=== PATIENT | female | born 1995 | race American Indian/Alaskan Native ===

== ENCOUNTER 2020-07-26 21:10 | Emergency (ER) | payer SELFPAY ==
[2020-07-26 21:45] VITALS: BP 143/87
[2020-07-27 00:52] LABS: Bilirubin,Urine NEG (Negative); Blood,Urine NEG (Negative); Color,Urine Yellow (Yellow); Mucus,Urine FEW /HPF; Protein,Urine <15 mg/dL mg/dL (Negative)
[2020-07-27 00:54] LABS: HCG Qualitative,Urine Negative (Negative)
[2020-07-27] MEDS ORDERED: LIDOCAINE-MPF (1%) 10 MG/1 ML VIAL 5 ML INFILTRATI ONE (01:30)
--- NOTE | 2020-07-27 02:05 | Emergency Department Report ---
ED Female HPI - General Chief complaint: Urogenital-Female Stated complaint: STD CHECK Source: patient Mode of arrival: Ambulatory Limitations: No Limitations - History of Present Illness Initial comments: Patient is a A0 25-year-old -[place] female with no past medical history presents to the ED with a complaint of acute onset urinary frequency and urgency and vaginal discharge for the last 3 days. Patient states that her ex- boyfriend with whom she had an unprotected sexual intercourse about a month ago contacted her and told her to come to the ED for STD treatment since he was diagnosed with an STD which he did not mention a while ago. Patient states that her ex-boyfriend told her that he had multiple sexual partners and that he was unsure as to where he got the infection from. Patient denies fever, chills, dysuria, vaginal bleeding, abdominal pain, nausea and vomiting, back pain, chest pain, shortness of breath or diarrhea. MD Complaint: vaginal discharge, possible STD -: Sudden, week(s) (1) Location: other (Vaginal) Radiation: non-radiating Severity: mild Severity scale (0 -10): 1 Quality: dull Consistency: intermittent Improves with: none Worsens with: none Are you Now?: No Associated Symptoms: denies other symptoms, vaginal discharge. denies: vaginal bleeding, abdominal pain, nausea/vomiting, fever/chills, headaches, loss of appetite, dysuria, hematuria, rash, seizure, shortness of breath, syncope, weakness - Related Data Sexually active: Yes : 1 Para: 1 A: 0 Previous Rx's Medication Instructions Recorded Last Taken Type Ibuprofen [Motrin 800 MG tab] 800 mg PO Q8HR PRN #12 tablet 11/25/19 Unknown Rx Doxycycline Hyclate 100 mg PO Q12H #20 tablet. 07/27/20 Unknown Rx Ondansetron [Zofran Odt] 4 mg PO Q6HR PRN #15 tab.catarinadis 07/27/20 Unknown Rx metroNIDAZOLE [Flagyl] 500 mg PO Q12HR #14 tab 07/27/20 Unknown Rx Allergies Allergy/AdvReac Type Severity Reaction Status Date / Time No Known Allergies Allergy Verified 11/25/19 02:33 ED Review of Systems ROS: Stated complaint: STD CHECK Other details as noted in HPI Constitutional: denies: chills, fever Eyes: denies: eye pain, eye discharge, vision change ENT: denies: ear pain, throat pain Respiratory: denies: cough, shortness of breath, wheezing Cardiovascular: denies: chest pain, palpitations Endocrine: no symptoms reported Gastrointestinal: denies: abdominal pain, nausea, diarrhea Genitourinary: urgency, discharge. denies: dysuria Musculoskeletal: denies: back pain, joint swelling, arthralgia Skin: denies: rash, lesions Neurological: denies: headache, weakness, paresthesias Psychiatric: denies: anxiety, depression Hematological/Lymphatic: denies: easy bleeding, easy bruising ED Past Medical Hx - Past Medical History Previous Medical History?: No - Surgical History Past Surgical History?: No - Social History Smoking Status: Current Every Day Smoker Substance Use Type: Alcohol - Medications Home Medications: Home Medications Medication Instructions Recorded Confirmed Last Taken Type Ibuprofen [Motrin 800 MG tab] 800 mg PO Q8HR PRN #12 tablet 11/25/19 Unknown Rx Doxycycline Hyclate 100 mg PO Q12H #20 tablet. 07/27/20 Unknown Rx Ondansetron [Zofran Odt] 4 mg PO Q6HR PRN #15 tab.rapdis 07/27/20 Unknown Rx metroNIDAZOLE [Flagyl] 500 mg PO Q12HR #14 tab 07/27/20 Unknown Rx ED Physical Exam - General Limitations: No Limitations General appearance: alert, in no apparent distress - Head Head exam: Present: atraumatic, normocephalic, normal inspection - Eye Eye exam: Present: normal appearance, PERRL, EOMI Pupils: Present: normal accommodation - ENT ENT exam: Present: normal exam, normal orophraynx, mucous membranes moist, TM's normal bilaterally, normal external ear exam - Neck Neck exam: Present: normal inspection, full ROM - Respiratory Respiratory exam: Present: normal lung sounds bilaterally. Absent: respiratory distress, wheezes, rales, stridor, chest wall tenderness, accessory muscle use, decreased breath sounds - Cardiovascular Cardiovascular Exam: Present: normal rhythm, tachycardia, normal heart sounds. Absent: systolic murmur, diastolic murmur, rubs, gallop - GI/Abdominal GI/Abdominal exam: Present: soft, normal bowel sounds. Absent: tenderness, guarding, hyperactive bowel sounds, hypoactive bowel sounds - Bi-manual exam: Present: other (Pelvic exam deferred, patient preferred self swab) - Extremities Exam Extremities exam: Present: normal inspection - Back Exam Back exam: Present: normal inspection, full ROM. Absent: tenderness, CVA tenderness (R), CVA tenderness (L), muscle spasm, paraspinal tenderness, vertebral tenderness - Neurological Exam Neurological exam: Present: alert, oriented X3, CN II-XII intact, normal gait, reflexes normal - Psychiatric Psychiatric exam: Present: normal affect, normal mood - Skin Skin exam: Present: warm, dry, intact, normal color. Absent: rash ED Course Vital Signs 07/26/20 21:43 Temperature 98.8 F Pulse Rate 104 H Respiratory 18 Rate Blood Pressure 143/87 O2 Sat by Pulse 98 Oximetry ED Medical Decision Making - Medical Decision Making This is a A0 25-year-old -[place] female with no past medical history presents to the ED with a complaint of acute onset urinary frequency and urgency and vaginal discharge for the last 3 days. Patient states that her ex- boyfriend with whom she had an unprotected sexual intercourse about a month ago contacted her and told her to come to the ED for STD treatment since he was diagnosed with an STD which he did not mention a while ago. Patient states that her ex-boyfriend told her that he had multiple sexual partners and that he was unsure as to where he got the infection from. In the ED, patient is alert and oriented x3 and is not in any distress. Urinalysis unremarkable. Wet prep was positive for Gardnerella vaginalis consistent with bacterial vaginosis. Patient was empirically treated for gonorrhea with Rocephin in the ED. Patient was discharged home with doxycycline and Flagyl and was advised to follow-up with the [facility] department for further evaluation and STD testing including HIV and syphilis. Patient was advised return to the ED immediately if symptoms get worse. - Differential Diagnosis UTI; bacterial vaginosis; trichomonas; Radha vaginitis; STD Critical care attestation.: If time is entered above; I have spent that time in minutes in the direct care of this critically ill patient, excluding procedure time. ED Disposition Clinical Impression: Bacterial vaginosis, Exposure to sexually transmitted disease (STD) Disposition: TO HOME OR SELFCARE Is pt being admited?: No Does the pt Need Aspirin: No Condition: Stable Instructions: Bacterial Vaginosis (ED), Bacterial Vaginosis, [id number], Safe Sex, Chlamydia, Female, [id number], Gonorrhea, Antibiotic Medicine, Adult, [id number] Additional Instructions: Urinalysis test is negative but wet prep test was positive for bacterial vaginosis. Since you were exposed to suspected chlamydia and gonorrhea, you were empirically treated for gonorrhea in the ED but you have to take antibiotics for suspected chlamydia. Therefore follow-up with the [facility] for further evaluation and STD testing including HIV and syphilis. Return to the ED immediately if symptoms get worse. Prescriptions: Doxycycline Hyclate 100 mg PO Q12H #20 tablet. metroNIDAZOLE [Flagyl] 500 mg PO Q12HR #14 tab Ondansetron [Zofran Odt] 4 mg PO Q6HR PRN #15 tab.rapdis PRN Reason: Pain , Severe (7-10) Referrals: [facility] [Outside] - 7-10 days Forms: STI Treatment and Prevention Time of Disposition: 02:00 Print Language: SYRIAC
== END 2020-07-27 02:45 | disposition home or self-care (01) ==
LOC: ED 21:10
DX: N76.0 Acute vaginitis (principal); B96.89 Other specified bacterial agents as the cause of diseases classified elsewhere; F17.200 Nicotine dependence, unspecified, uncomplicated; Z20.2 Contact with and (suspected) exposure to infections with a predominantly sexual mode of transmission; Z79.899 Other long term (current) drug therapy
CPT/HCPCS: 81001; 81025; 87210; 96372; 99283; J0696